=== PATIENT | male | born 1955 | race Caucasian/White ===

== ENCOUNTER 2019-02-12 04:33 | Emergency (ER) | payer MEDICARE, BC ==
--- NOTE | 2019-02-12 05:10 | EDM.PDOC ---
<Fer Alonzo - Last Filed: 02/12/19 07:15> ED HPI GENERAL MEDICAL PROBLEM - General Chief Complaint: Chest Pain Stated Complaint: CHEST PAINS Time Seen by Provider: 02/12/19 04:50 Source of Information: Reports: Patient, Family History Limitations: Reports: No Limitations - History of Present Illness INITIAL COMMENTS - FREE TEXT/NARRATIVE: 63-year-old male woke up 3 hours ago with chest pressure, radiating through his back and a small amount into his left shoulder. No diaphoresis or nausea. No shortness of breath. He waited approximately some one hour, it wasn't improving so he came in to town to get some antacids. He took some antacids which seemed to help but not resolving the pain. When he came into the emergency room and lied down, it seemed to almost resolve. No previous similar pain. No previous cardiac history. Onset: Unknown/Unsure (Woke with pain at 2:30, 2-1/2 hours ago) Location: Reports: Chest Quality: Reports: Pressure Improves with: Reports: Other (Seemed to improve somewhat with antacids and also lying down) Worsens with: Reports: None Associated Symptoms: Reports: Chest Pain. Denies: Cough, Diaphoresis, Loss of Appetite, Nausea/Vomiting, Weakness - Related Data Allergies Allergy/AdvReac Type Severity Reaction Status Date / Time niacin Allergy Rash Verified 02/12/19 04:46 Home Meds: Home Meds Gabapentin [Neurontin] 02/12/19 [History] Zolpidem [Ambien] 02/12/19 [History] atorvaSTATin [Lipitor] 02/12/19 [History] Past Medical History Cardiovascular History: Reports: Afib, High Cholesterol Oncologic (Cancer) History: Reports: Bone - Past Surgical History GI Surgical History: Reports: Colostomy Social & Family History - Tobacco Use Smoking Status *Q: Never Smoker ED ROS GENERAL - Review of Systems Review Of Systems: See Below Constitutional: Denies: Fever, Chills HEENT: Reports: No Symptoms Respiratory: Denies: Shortness of Breath Cardiovascular: Reports: Chest Pain. Denies: Palpitations GI/Abdominal: Reports: Abdominal Pain (Some pain in the epigastric area) : Reports: No Symptoms Skin: Reports: No Symptoms Neurological: Denies: Headache Psychiatric: Reports: No Symptoms ED EXAM, GENERAL - Physical Exam Exam: See Below Exam Limited By: No Limitations General Appearance: Alert, No Apparent Distress Eye Exam: Bilateral Eye: EOMI, Normal Inspection (No jaundice) Head: Atraumatic Neck: Supple Respiratory/Chest: No Respiratory Distress, Lungs Clear Cardiovascular: Regular Rate, Rhythm, Other (Very distant heart sounds) GI/Abdominal: Normal Bowel Sounds, Soft, Non-Tender Extremities: Pedal Edema (1+ pitting edema from the feet to the knees bilaterally, symmetric) Neurological: Alert, Oriented Psychiatric: Normal Affect, Normal Mood EKG INTERPRETATION EKG Date: 02/12/19 Time: 05:00 Rhythm: NSR Rate (Beats/Min): 78 ST-T: Normal Comparison: NA - No Prior EKG EKG Interpretation Comments: Q waves are present in lead 3 and aVF, also V1 Course - Vital Signs Last Recorded V/S: Last Vital Signs Temp 36.4 C 02/12/19 05:01 Pulse 74 02/12/19 07:45 Resp 16 02/12/19 07:45 BP 142/84 H 02/12/19 07:45 Pulse Ox 94 L 02/12/19 07:45 - Orders/Labs/Meds Orders: Active Orders 24 hr Category Date Time Status EKG Documentation Completion [RC] ASDIRECTED Care 02/12/19 05:03 Active EKG 12 Lead [EK] Routine Ther 02/12/19 05:03 Ordered Labs: Laboratory Tests 02/12/19 02/12/19 02/12/19 Range/Units 04:44 05:02 05:03 WBC 8.7 (4.5-11.0) K/uL RBC 4.63 (4.30-5.90) M/uL Hgb 15.7 H (12.0-15.0) g/dL Hct 45.5 (40.0-54.0) % MCV 98 (80-98) fL MCH 34 H (27-31) pg MCHC 35 (32-36) % Plt Count 143 L (150-400) K/uL Neut % (Auto) 68 H (36-66) % Lymph % (Auto) 18 L (24-44) % [place] % (Auto) 12 H (2-6) % Eos % (Auto) 2 (2-4) % Baso % (Auto) 1 (0-1) % Sodium 141 (140-148) mmol/L Potassium 4.0 (3.6-5.2) mmol/L Chloride 105 (100-108) mmol/L Carbon Dioxide 24 (21-32) mmol/L Anion Gap 11.6 (5.0-14.0) mmol/L BUN 19 H (7-18) mg/dL Creatinine 1.1 (0.8-1.3) mg/dL Est Cr Clr Drug Dosing 74.16 mL/min Estimated GFR (MDRD) > 60 (>60) Glucose 175 H (74-106) mg/dL Calcium 8.9 (8.5-10.1) mg/dL Total Bilirubin 0.6 (0.2-1.0) mg/dL AST 76 H (15-37) U/L ALT 112 H (12-78) U/L Alkaline Phosphatase 106 (46-116) U/L Troponin I < 0.017 (0.000-0.056) ng/mL Total Protein 7.3 (6.4-8.2) g/dL Albumin 4.0 (3.4-5.0) g/dL Globulin 3.3 (2.3-3.5) g/dL Albumin/Globulin Ratio 1.2 (1.2-2.2) Lipase 239 (73-393) U/L 02/12/19 Range/Units 07:11 WBC (4.5-11.0) K/uL RBC (4.30-5.90) M/uL Hgb (12.0-15.0) g/dL Hct (40.0-54.0) % MCV (80-98) fL MCH (27-31) pg MCHC (32-36) % Plt Count (150-400) K/uL Neut % (Auto) (36-66) % Lymph % (Auto) (24-44) % [place] % (Auto) (2-6) % Eos % (Auto) (2-4) % Baso % (Auto) (0-1) % Sodium (140-148) mmol/L Potassium (3.6-5.2) mmol/L Chloride (100-108) mmol/L Carbon Dioxide (21-32) mmol/L Anion Gap (5.0-14.0) mmol/L BUN (7-18) mg/dL Creatinine (0.8-1.3) mg/dL Est Cr Clr Drug Dosing mL/min Estimated GFR (MDRD) (>60) Glucose (74-106) mg/dL Calcium (8.5-10.1) mg/dL Total Bilirubin (0.2-1.0) mg/dL AST (15-37) U/L ALT (12-78) U/L Alkaline Phosphatase (46-116) U/L Troponin I < 0.017 (0.000-0.056) ng/mL Total Protein (6.4-8.2) g/dL Albumin (3.4-5.0) g/dL Globulin (2.3-3.5) g/dL Albumin/Globulin Ratio (1.2-2.2) Lipase (73-393) U/L - Re-Assessments/Exams Free Text/Narrative Re-Assessment/Exam: 02/12/19 05:11 EKG showed no acute findings, Q waves are present in the inferior leads. Patient 's symptoms were not pronounced enough for any further urgent treatment. CBC, CMP, troponin and lipase were obtained. 02/12/19 05:51 Laboratory reassuring, troponin was 0. The level needs to be repeated in 2 hours to rule out VT. 02/12/19 07:17 Repeat troponin was drawn at 7 AM. Disposition was turned over to Dr. Florence pending result. Departure - Departure Disposition: Home, Self-Care 01 Clinical Impression: GERD (gastroesophageal reflux disease) - Discharge Information Referrals: PCP,None [Primary Care Provider] - Forms: ED Department Discharge Care Plan Goals: suggest over the counter pepcid 20 mg bid for the next week, rtc if further symptoms. <Sully Florence - Last Filed: 02/12/19 07:56> Course - Re-Assessments/Exams Free Text/Narrative Re-Assessment/Exam: 02/12/19 07:53 pt had a second trop and this was found to be negative. He will be discharge with more the gastric irritation problem. Departure - Departure Time of Disposition: 07:54 Condition: Fair
== END 2019-02-12 08:04 | disposition home or self-care (01) ==
LOC: JP.ED 04:33
DX: K21.9 Gastro-esophageal reflux disease without esophagitis (principal); I48.91 Unspecified atrial fibrillation; Z79.899 Other long term (current) drug therapy
CPT/HCPCS: 36415; 80053; 83690; 84484; 85025; 93005; 99284; 99284-25